=== PATIENT | male | born 1970 | race Caucasian/White ===

== ENCOUNTER 2016-07-05 00:16 | Emergency (ER) | payer MEDICAID, OTHER ==
[~2016-07-05] VITALS: Ht 170.2 cm; Wt 86.4 kg
[~2016-07-05 00:16] MED LIST: ADV250 IH; DULO60CA44 PO; GLYC2TAB13 PO; LISI-661 PO; METF500T4 PO; OLAN5TAB2 PO; PRAV40 PO; QUET400T PO; VALGDS450 PO
[2016-07-05] MEDS ORDERED: OMEP20 PO (00:39)
[2016-07-05] MEDS ORDERED: CLIN300C3 PO (00:39)
[2016-07-05] MEDS ORDERED: DONE10TA PO (00:39)
[2016-07-05] MEDS ORDERED: HYDR-3114 PO (00:39)
[2016-07-05] MEDS ORDERED: IPRNEB IH (00:39)
[2016-07-05] MEDS ORDERED: ALBU8HFA IH (00:39)
[2016-07-05] MEDS ORDERED: RAME8TAB17 PO (00:39)
[2016-07-05] MEDS ORDERED: EXEN5PEN2 INJ (00:39)
[2016-07-05] MEDS ORDERED: CHLO100T24 PO (00:39)
[2016-07-05] MEDS ORDERED: MOME13HF2 IH (00:39)
[2016-07-05] MEDS ORDERED: DIVA500T35 PO (00:39)
[2016-07-05] MEDS ORDERED: GABA-531 PO (00:39)
[2016-07-05] MEDS ORDERED: CLON1 PO (00:39)
[2016-07-05] MEDS ORDERED: METF500T4 PO (00:39)
[2016-07-05] MEDS ORDERED: ABAC1TAB15 PO (00:39)
[2016-07-05 01:02] LABS: BASOPHILS % (AUTO) 0.4 % (0.0-2.0); EOSINOPHILS % (AUTO) 2.2 % (1.0-6.0); HEMOGLOBIN 12.9 g/dL (13.5-17.5); LYMPHOCYTES # (AUTO) 2.4 K/uL (1.0-4.8); MEAN CORPUSCULAR HEMOGLOBIN 29.3 pg (26.0-34.0); MEAN CORPUSCULAR HGB CONC 32.2 G/dL (31.0-37.0); MEAN CORPUSCULAR VOLUME 91 fL (80-100); MONOCYTES # (AUTO) 0.8 K/uL (0.1-1.0); MONOCYTES % (AUTO) 6.2 % (2.0-9.0); NEUTROPHILS # (AUTO) 9.3 K/uL (1.8-7.7); NEUTROPHILS % (AUTO) 72.2 % (40.0-70.0); PLATELET COUNT (AUTO) 260 K/uL (150-450); RED BLOOD CELL COUNT(AUTO) 4.39 MIL/uL (4.50-5.90); RED CELL DISTRIBUTION WIDTH 13.9 % (11.5-14.5); WHITE BLOOD COUNT (AUTO) 12.8 K/uL (4.5-11.0)
[2016-07-05 01:10] LABS: ANION GAP 14 mmol/L (8-16); CALCIUM, TOTAL 9.6 mg/dL (8.8-10.5); CARBON DIOXIDE 25 mmol/L (22-29); CHLORIDE 102 mmol/L (98-107); CREATININE 2.01 mg/dL (0.60-1.30); GLOMERULAR FILTR. RATE CALC 36 mL/min (>60); POTASSIUM 4.1 mmol/L (3.5-5.1); SODIUM SERUM 141 mmol/L (136-145); UREA NITROGEN, BLOOD 34 mg/dL (7-18)
[2016-07-05 01:12] LABS: GLUCOSE,POINT OF CARE 177 MG/DL (70-110)
[2016-07-05] MEDS ORDERED: MORPHINE SULFATE 4 MG/ML SYRINGE IVP ONE (01:15)
[2016-07-05] MEDS ORDERED: SODIUM CHLORIDE 0.9% 1,000 ML IV ONE ×3 (01:15→01:45)
[2016-07-05 01:35] LABS: ALANINE AMINOTRANSFERASE 25 U/L (12-78); ALBUMIN 4.4 g/dL (3.4-5.0); ASPARTATE AMINOTRANSFERASE 14 U/L (15-37); BILIRUBIN,TOTAL 0.4 mg/dL (0.1-1.0); CREATINE KINASE MB 1.4 ng/mL (0-5); CREATINE KINASE, TOTAL 166 U/L (39-308); TOTAL PROTEIN, SERUM 7.6 g/dL (6.4-8.2)
[2016-07-05 01:47] LABS: LACTIC ACID 2.4 mmol/L (0.4-2.0)
[2016-07-05] MEDS ORDERED: DIAZEPAM 5 MG/ML 2 ML SYRINGE IVP ONE (02:15)
[2016-07-05 03:23] VITALS: BP 100/52
== END 2016-07-05 03:52 | disposition home or self-care (01) ==
LOC: EMS 00:17
DX: R25.2 Cramp and spasm (principal); N28.9 Disorder of kidney and ureter, unspecified; E11.9 Type 2 diabetes mellitus without complications; J44.9 Chronic obstructive pulmonary disease, unspecified; J45.909 Unspecified asthma, uncomplicated; Z88.0 Allergy status to penicillin; Z88.8 Allergy status to other drugs, medicaments and biological substances; Z87.891 Personal history of nicotine dependence
CPT/HCPCS: 36415; 71010; 80053; 82550; 82553; 82962; 83605; 83880; 85025; 93005; 93970; 96361; 96374; 96375; 99285; G0480; J1885; J2270; J7030

== ENCOUNTER 2016-08-13 23:06 | Emergency (ER) | payer OTHER ==
[~2016-08-13] VITALS: Ht 170.2 cm; Wt 90.0 kg
[~2016-08-13 23:06] MED LIST changes: +ABAC1TAB15 PO; -ADV250 IH; +ALBU8HFA IH; +CHLO100T24 PO; +CLIN300C3 PO; +CLON1 PO; +DIVA500T35 PO; +DONE10TA PO; -DULO60CA44 PO; +EXEN5PEN2 INJ; +GABA-531 PO; -GLYC2TAB13 PO; +HYDR-3114 PO; +IPRNEB IH; +MOME13HF2 IH; -OLAN5TAB2 PO; +OMEP20 PO; +RAME8TAB17 PO; -VALGDS450 PO
[2016-08-13 23:32] LABS: GLUCOSE,POINT OF CARE 186 MG/DL (70-110)
[2016-08-14 00:18] LABS: BASOPHILS % (AUTO) 0.3 % (0.0-2.0); EOSINOPHILS % (AUTO) 1.5 % (1.0-6.0); HEMATOCRIT 42.9 % (41-53); HEMOGLOBIN 14.2 g/dL (13.5-17.5); LYMPHOCYTES # (AUTO) 2.2 K/uL (1.0-4.8); LYMPHOCYTES % (AUTO) 17.3 % (22.0-44.0); MEAN CORPUSCULAR HEMOGLOBIN 30.3 pg (26.0-34.0); MEAN CORPUSCULAR HGB CONC 33.1 G/dL (31.0-37.0); MEAN CORPUSCULAR VOLUME 91 fL (80-100); MONOCYTES # (AUTO) 0.7 K/uL (0.1-1.0); MONOCYTES % (AUTO) 5.7 % (2.0-9.0); NEUTROPHILS # (AUTO) 9.4 K/uL (1.8-7.7); NEUTROPHILS % (AUTO) 75.2 % (40.0-70.0); PLATELET COUNT (AUTO) 241 K/uL (150-450); RED CELL DISTRIBUTION WIDTH 13.3 % (11.5-14.5); WHITE BLOOD COUNT (AUTO) 12.5 K/uL (4.5-11.0)
[2016-08-14 00:27] LABS: ANION GAP 18 mmol/L (8-16); CALCIUM, TOTAL 8.8 mg/dL (8.8-10.5); CARBON DIOXIDE 21 mmol/L (22-29); CHLORIDE 94 mmol/L (98-107); CREATININE 2.68 mg/dL (0.60-1.30); GLOMERULAR FILTR. RATE CALC 26 mL/min (>60); SODIUM SERUM 133 mmol/L (136-145); UREA NITROGEN, BLOOD 40 mg/dL (7-18)
[2016-08-14 00:30] LABS: INR 1.1 (0.9-1.1); PROTHROMBIN TIME 11.6 SEC (9.4-11.6)
[2016-08-14 00:44] LABS: B-TYPE NATRIURETIC PEPTIDE < 5 pg/mL (0-100)
[2016-08-14 00:52] LABS: ALANINE AMINOTRANSFERASE 22 U/L (12-78); ALBUMIN 4.8 g/dL (3.4-5.0); ASPARTATE AMINOTRANSFERASE 14 U/L (15-37); BILIRUBIN,TOTAL 0.7 mg/dL (0.1-1.0); CREATINE KINASE, TOTAL 209 U/L (39-308)
[2016-08-14] MEDS ORDERED: ONDANSETRON HCL 4 MG/2 ML VIAL IVP ONE ×2 (01:45→04:15)
[2016-08-14] MEDS ORDERED: SODIUM CHLORIDE 0.9% 1,000 ML IV ONE ×2 (01:45→03:15)
[2016-08-14] MEDS ORDERED: MORPHINE SULFATE 4 MG/ML SYRINGE IVP ONE ×2 (01:45→04:15)
[2016-08-14 04:31] LABS: APPEARANCE,URINE CLOUDY (CLEAR); GLUCOSE, URINE (UA) NEGATIVE (NEGATIVE); KETONES,URINE NEGATIVE (NEGATIVE); LEUKOCYTE ESTERASE ,URINE NEGATIVE (NEGATIVE); OCCULT BLOOD,URINE NEGATIVE (NEGATIVE); PROTEIN,URINE TRACE (NEGATIVE)
[2016-08-14 04:42] LABS: ADD UA MICROSCOPIC YES
[2016-08-14 04:46] LABS: SQUAMOUS EPITHELIAL CELL,UR Few /LPF (None Seen)
[2016-08-14 04:47] LABS: RBC,URINE 0-2 /HPF (0-2); WBC,URINE 0-2 /HPF (0-5)
[2016-08-14 04:48] LABS: AMORPHOUS SEDIMENT,UR Few /LPF (None Seen); COARSE GRANULAR CASTS,URINE 0-2 /LPF (None Seen); FINE GRANULAR CASTS,URINE 0-2 /LPF (None Seen); HYALINE CASTS, URINE 0-2 /LPF (None Seen)
[2016-08-14 05:07] VITALS: BP 113/84
== END 2016-08-14 05:17 | disposition home or self-care (01) ==
LOC: EMS 23:08
DX: F41.9 Anxiety disorder, unspecified (principal); E11.22 Type 2 diabetes mellitus with diabetic chronic kidney disease; N18.9 Chronic kidney disease, unspecified; E86.0 Dehydration; F20.9 Schizophrenia, unspecified; J44.9 Chronic obstructive pulmonary disease, unspecified; J45.909 Unspecified asthma, uncomplicated; Z87.891 Personal history of nicotine dependence; Z88.0 Allergy status to penicillin; Z88.8 Allergy status to other drugs, medicaments and biological substances; Z86.718 Personal history of other venous thrombosis and embolism
CPT/HCPCS: 36415; 71010; 80053; 80307; 81001; 82550; 82553; 82962; 83880; 84484; 85025; 85610; 85730; 96361; 96374; 96375; 96376; 99285; J2270; J2405; J7030

== ENCOUNTER 2016-08-22 22:40 | Emergency (ER) | payer OTHER ==
[~2016-08-22] VITALS: Ht 170.2 cm; Wt 83.2 kg
[2016-08-22 23:40] LABS: BASOPHILS % (AUTO) 0.3 % (0.0-2.0); EOSINOPHILS % (AUTO) 2.5 % (1.0-6.0); HEMOGLOBIN 13.2 g/dL (13.5-17.5); LYMPHOCYTES # (AUTO) 2.1 K/uL (1.0-4.8); LYMPHOCYTES % (AUTO) 21.6 % (22.0-44.0); MEAN CORPUSCULAR VOLUME 91 fL (80-100); MONOCYTES # (AUTO) 0.5 K/uL (0.1-1.0); NEUTROPHILS % (AUTO) 70.6 % (40.0-70.0); PLATELET COUNT (AUTO) 244 K/uL (150-450); RED BLOOD CELL COUNT(AUTO) 4.27 MIL/uL (4.50-5.90); RED CELL DISTRIBUTION WIDTH 13.3 % (11.5-14.5); WHITE BLOOD COUNT (AUTO) 9.9 K/uL (4.5-11.0)
[2016-08-22 23:48] LABS: CALCIUM, TOTAL 9.2 mg/dL (8.8-10.5); CREATININE 1.74 mg/dL (0.60-1.30); POTASSIUM 3.8 mmol/L (3.5-5.1)
[2016-08-22 23:49] LABS: TROPONIN I < 0.02 ng/mL (0.00-0.05)
[2016-08-22 23:54] LABS: ALBUMIN 4.1 g/dL (3.4-5.0); BILIRUBIN,TOTAL 0.2 mg/dL (0.1-1.0); TOTAL PROTEIN, SERUM 7.4 g/dL (6.4-8.2)
[2016-08-22 23:57] LABS: AMMONIA 31 umol/L (11-32)
[2016-08-23 00:45] VITALS: BP 98/52
[2016-08-23 01:16] LABS: APPEARANCE,URINE CLEAR (CLEAR); GLUCOSE, URINE (UA) NEGATIVE (NEGATIVE); KETONES,URINE NEGATIVE (NEGATIVE); LEUKOCYTE ESTERASE ,URINE NEGATIVE (NEGATIVE); OCCULT BLOOD,URINE NEGATIVE (NEGATIVE); PH,URINE 5.5 (5.0-8.0); PROTEIN,URINE POS 1+ (NEGATIVE)
[2016-08-23 01:25] LABS: ADD UA MICROSCOPIC NO
== END 2016-08-23 01:43 | disposition home or self-care (01) ==
LOC: EMS 22:41
DX: R55 Syncope and collapse (principal); M79.661 Pain in right lower leg; M79.662 Pain in left lower leg; E11.29 Type 2 diabetes mellitus with other diabetic kidney complication; N28.9 Disorder of kidney and ureter, unspecified; G89.29 Other chronic pain; J45.909 Unspecified asthma, uncomplicated; J44.9 Chronic obstructive pulmonary disease, unspecified; Z87.891 Personal history of nicotine dependence; Z88.0 Allergy status to penicillin; Z88.8 Allergy status to other drugs, medicaments and biological substances
CPT/HCPCS: 93005; 99285

== ENCOUNTER 2016-09-13 17:02 | Emergency (ER) | payer OTHER ==
[~2016-09-13] VITALS: Ht 170.2 cm; Wt 90.0 kg
[2016-09-13 17:17] LABS: GLUCOSE,POINT OF CARE 101 MG/DL (70-110)
[2016-09-13] MEDS ORDERED: SODIUM CHLORIDE 0.9% 1,000 ML IV ONE (18:15)
[2016-09-13] MEDS ORDERED: ONDANSETRON HCL 4 MG/2 ML VIAL IVP ONE (18:15)
[2016-09-13] MEDS ORDERED: HYDROmorphone 2 MG/ML SYRINGE IVP ONE (18:15)
[2016-09-13 18:30] LABS: BASOPHILS # (AUTO) 0.08 K/uL (0.00-0.20); BASOPHILS % (AUTO) 0.8 % (0.0-2.0); EOSINOPHILS # (AUTO) 0.45 K/uL (0.00-0.70); EOSINOPHILS % (AUTO) 4.43 % (1.0-6.0); HEMOGLOBIN 12.4 g/dL (13.5-17.5); LYMPHOCYTES # (AUTO) 2.5 K/uL (1.0-4.8); MEAN CORPUSCULAR HEMOGLOBIN 31.4 pg (26.0-34.0); MEAN CORPUSCULAR HGB CONC 33.4 G/dL (31.0-37.0); MEAN CORPUSCULAR VOLUME 94 fL (80-100); MONOCYTES # (AUTO) 0.8 K/uL (0.1-1.0); MONOCYTES % (AUTO) 7.5 % (2.0-9.0); NEUTROPHILS # (AUTO) 6.3 K/uL (1.8-7.7); NEUTROPHILS % (AUTO) 62.2 % (40.0-70.0); PLATELET COUNT (AUTO) 200 K/uL (150-450); RED BLOOD CELL COUNT(AUTO) 3.94 MIL/uL (4.50-5.90); WHITE BLOOD COUNT (AUTO) 10.1 K/uL (4.5-11.0)
[2016-09-13 18:45] LABS: ANION GAP 10 mmol/L (8-16); CALCIUM, TOTAL 9.1 mg/dL (8.8-10.5); CARBON DIOXIDE 27 mmol/L (22-29); CHLORIDE 105 mmol/L (98-107); CREATININE 1.05 mg/dL (0.60-1.30); GLOMERULAR FILTR. RATE CALC > 60 mL/min (>60); POTASSIUM 4.2 mmol/L (3.5-5.1); SODIUM SERUM 142 mmol/L (136-145); UREA NITROGEN, BLOOD 17 mg/dL (7-18)
[2016-09-13 18:47] LABS: ALANINE AMINOTRANSFERASE 15 U/L (12-78); ALBUMIN 3.9 g/dL (3.4-5.0); ASPARTATE AMINOTRANSFERASE 10 U/L (15-37); BILIRUBIN,TOTAL 0.2 mg/dL (0.1-1.0); TOTAL PROTEIN, SERUM 7.3 g/dL (6.4-8.2)
[2016-09-13 18:48] LABS: PROTHROMBIN TIME 10.6 SEC (9.4-11.6)
[2016-09-13 19:11] VITALS: BP 102/76
== END 2016-09-13 20:30 | disposition home or self-care (01) ==
LOC: EMS 17:03
DX: M25.462 Effusion, left knee (principal); M17.12 Unilateral primary osteoarthritis, left knee; E11.9 Type 2 diabetes mellitus without complications; M71.22 Synovial cyst of popliteal space [Baker], left knee; F20.9 Schizophrenia, unspecified; J45.909 Unspecified asthma, uncomplicated; J44.9 Chronic obstructive pulmonary disease, unspecified; F17.210 Nicotine dependence, cigarettes, uncomplicated; N28.9 Disorder of kidney and ureter, unspecified; Z88.8 Allergy status to other drugs, medicaments and biological substances; Z88.0 Allergy status to penicillin; Z96.652 Presence of left artificial knee joint
CPT/HCPCS: 29530; 36415; 80053; 82962; 85025; 85610; 93971; 96361; 96374; 96375; 99285; 99406; J1170; J2405; J7030

== ENCOUNTER 2016-09-21 19:00 | Emergency (ER) | payer OTHER ==
[~2016-09-21] VITALS: Ht 168.9 cm; Wt 89.5 kg
[2016-09-21 19:17] LABS: GLUCOSE,POINT OF CARE 142 MG/DL (70-110)
[2016-09-21] MEDS ORDERED: BUPIVACAINE HCL/PF 0.25% 10 ML VIAL INJ ONE (20:15)
[2016-09-21] MEDS ORDERED: BACITRACIN 0.9 GM PACKET OINTMENT TP ONE (20:15)
[2016-09-21 20:22] VITALS: BP 121/85
== END 2016-09-21 20:33 | disposition home or self-care (01) ==
LOC: EMS 19:02
DX: S61.512A Laceration without foreign body of left wrist, initial encounter (principal); J45.909 Unspecified asthma, uncomplicated; J44.9 Chronic obstructive pulmonary disease, unspecified; E11.29 Type 2 diabetes mellitus with other diabetic kidney complication; N28.9 Disorder of kidney and ureter, unspecified; Z87.891 Personal history of nicotine dependence; Z88.0 Allergy status to penicillin; Z88.8 Allergy status to other drugs, medicaments and biological substances; W45.8XXA Other foreign body or object entering through skin, initial encounter; Y93.89 Activity, other specified; Y92.89 Other specified places as the place of occurrence of the external cause; Y99.8 Other external cause status
CPT/HCPCS: 12001; 82962; 99283; J3490

== ENCOUNTER 2016-12-06 17:58 | Emergency (ER) | payer OTHER ==
[~2016-12-06] VITALS: Ht 170.2 cm; Wt 84.5 kg
[~2016-12-06 17:58] MED LIST changes: -CLIN300C3 PO; -DONE10TA PO; +DONE10TA8 PO; -PRAV40 PO; +PRAV40TA4 PO; -RAME8TAB17 PO; +RAME8TAB8 PO
[2016-12-06] MEDS ORDERED: IPRATROPIUM BROMIDE 0.5 MG/2.5 ML NEB SOLUTION NEB ONE (19:30)
[2016-12-06] MEDS ORDERED: GABAPENTIN 300 MG CAPSULE PO ONE (19:30)
[2016-12-06] MEDS ORDERED: OxyCODONE HCL/ACETAMINOPHEN 10-325 MG TABLET PO ONE (19:30)
[2016-12-06] MEDS ORDERED: ALBUTEROL SULFATE 5 MG/ML 20 ML NEB SOLN [BULK] NEB ONE (19:30)
[2016-12-06] MEDS ORDERED: PredniSONE 20 MG TABLET PO ONE (19:30)
[2016-12-06] MEDS ORDERED: 0.9% SODIUM CHLORIDE 5 ML NEB SOLUTION NEB ONE (19:31)
[2016-12-06 19:44] LABS: BASOPHILS % (AUTO) 0.3 % (0.0-2.0); EOSINOPHILS % (AUTO) 2.8 % (1.0-6.0); HEMATOCRIT 38.8 % (41-53); LYMPHOCYTES # (AUTO) 2.5 K/uL (1.0-4.8); LYMPHOCYTES % (AUTO) 17.1 % (22.0-44.0); MEAN CORPUSCULAR HEMOGLOBIN 31.6 pg (26.0-34.0); MEAN CORPUSCULAR HGB CONC 33.4 G/dL (31.0-37.0); MEAN CORPUSCULAR VOLUME 95 fL (80-100); MONOCYTES # (AUTO) 0.9 K/uL (0.1-1.0); MONOCYTES % (AUTO) 5.9 % (2.0-9.0); NEUTROPHILS % (AUTO) 73.9 % (40.0-70.0); PLATELET COUNT (AUTO) 262 K/uL (150-450); RED BLOOD CELL COUNT(AUTO) 4.11 MIL/uL (4.50-5.90); RED CELL DISTRIBUTION WIDTH 13.8 % (11.5-14.5); WHITE BLOOD COUNT (AUTO) 14.9 K/uL (4.5-11.0)
[2016-12-06 19:58] LABS: ANION GAP 8 mmol/L (8-16); CALCIUM, TOTAL 9.1 mg/dL (8.8-10.5); CARBON DIOXIDE 29 mmol/L (22-29); CHLORIDE 102 mmol/L (98-107); CREATININE 0.89 mg/dL (0.60-1.30); GLOMERULAR FILTR. RATE CALC > 60 mL/min (>60); POTASSIUM 4.5 mmol/L (3.5-5.1); SODIUM SERUM 139 mmol/L (136-145); UREA NITROGEN, BLOOD 12 mg/dL (7-18)
[2016-12-06 20:04] LABS: ALANINE AMINOTRANSFERASE 16 U/L (12-78); ALBUMIN 4.1 g/dL (3.4-5.0); ASPARTATE AMINOTRANSFERASE 11 U/L (15-37); BILIRUBIN,TOTAL 0.2 mg/dL (0.1-1.0); TOTAL PROTEIN, SERUM 7.8 g/dL (6.4-8.2)
[2016-12-06 20:15] LABS: GLUCOSE,POINT OF CARE 144 MG/DL (70-110)
[2016-12-06 20:25] VITALS: BP 141/81
== END 2016-12-06 20:41 | disposition home or self-care (01) ==
LOC: EMS 18:03
DX: J44.1 Chronic obstructive pulmonary disease with (acute) exacerbation (principal); R07.89 Other chest pain; E11.9 Type 2 diabetes mellitus without complications; Z86.718 Personal history of other venous thrombosis and embolism; Z21 Asymptomatic human immunodeficiency virus [HIV] infection status; Z87.891 Personal history of nicotine dependence; Z88.0 Allergy status to penicillin; Z88.8 Allergy status to other drugs, medicaments and biological substances
CPT/HCPCS: 36415; 71010; 80053; 82962; 85025; 93005; 94640; 99285; J7512; J7611

== ENCOUNTER 2017-01-10 22:11 | Emergency (ER) | payer OTHER ==
[~2017-01-10] VITALS: Ht 170.2 cm; Wt 90.5 kg
[2017-01-10 22:28] LABS: GLUCOSE,POINT OF CARE 165 MG/DL (70-110)
[2017-01-10 22:36] LABS: BASOPHILS # (AUTO) 0.04 K/uL (0.00-0.20); BASOPHILS % (AUTO) 0.3 % (0.0-2.0); EOSINOPHILS # (AUTO) 0.35 K/uL (0.00-0.70); HEMOGLOBIN 12.2 g/dL (13.5-17.5); LYMPHOCYTES # (AUTO) 2.6 K/uL (1.0-4.8); LYMPHOCYTES % (AUTO) 21.7 % (22.0-44.0); MEAN CORPUSCULAR HEMOGLOBIN 31.5 pg (26.0-34.0); MEAN CORPUSCULAR HGB CONC 32.9 G/dL (31.0-37.0); MEAN CORPUSCULAR VOLUME 96 fL (80-100); MONOCYTES # (AUTO) 0.8 K/uL (0.1-1.0); MONOCYTES % (AUTO) 6.4 % (2.0-9.0); NEUTROPHILS # (AUTO) 8.3 K/uL (1.8-7.7); NEUTROPHILS % (AUTO) 68.7 % (40.0-70.0); PLATELET COUNT (AUTO) 192 K/uL (150-450); RED BLOOD CELL COUNT(AUTO) 3.87 MIL/uL (4.50-5.90); RED CELL DISTRIBUTION WIDTH 14.5 % (11.5-14.5); WHITE BLOOD COUNT (AUTO) 12.1 K/uL (4.5-11.0)
[2017-01-10 22:43] LABS: ANION GAP 6 mmol/L (8-16); CALCIUM, TOTAL 9.7 mg/dL (8.8-10.5); CARBON DIOXIDE 28 mmol/L (22-29); CHLORIDE 100 mmol/L (98-107); GLOMERULAR FILTR. RATE CALC 60 mL/min (>60); POTASSIUM 4.6 mmol/L (3.5-5.1); SODIUM SERUM 134 mmol/L (136-145); UREA NITROGEN, BLOOD 15 mg/dL (7-18)
[2017-01-10] MEDS ORDERED: SODIUM CHLORIDE 0.9% 1,000 ML IV ONE (22:45)
[2017-01-10 22:49] LABS: ACETAMINOPHEN 2 mcg/mL (10-30); ALANINE AMINOTRANSFERASE 14 U/L (12-78); ALBUMIN 3.6 g/dL (3.4-5.0); ASPARTATE AMINOTRANSFERASE 7 U/L (15-37); BILIRUBIN,TOTAL 0.2 mg/dL (0.1-1.0); TOTAL PROTEIN, SERUM 6.9 g/dL (6.4-8.2); VALPROIC ACID 71 mcg/mL (50-100)
[2017-01-10 23:01] LABS: SALICYLATE 4.4 mg/dL (2.8-20.0)
[2017-01-10 23:12] LABS: CREATINE KINASE MB 0.9 ng/mL (0-5); CREATINE KINASE, TOTAL 71 U/L (39-308)
[2017-01-11] MEDS ORDERED: SODIUM CHLORIDE 0.9% 1,000 ML IV ONE (01:15)
[2017-01-11] MEDS ORDERED: SODIUM CHLORIDE 0.9% 500 ML IV ONE (03:30)
[2017-01-11 05:08] VITALS: BP 121/73
== END 2017-01-11 05:15 | disposition home or self-care (01) ==
LOC: EMS 22:12
DX: T43.591A Poisoning by other antipsychotics and neuroleptics, accidental (unintentional), initial encounter (principal); J98.4 Other disorders of lung; J45.909 Unspecified asthma, uncomplicated; J44.9 Chronic obstructive pulmonary disease, unspecified; Z87.891 Personal history of nicotine dependence; Z88.8 Allergy status to other drugs, medicaments and biological substances; Z88.0 Allergy status to penicillin
CPT/HCPCS: 36415; 71010; 71250; 80053; 80164; 80307; 82550; 82553; 82962; 83880; 84484; 85025; 93005; 96360; 96361; 99291; G0480 ×2; G0481; J7030 ×2; J7040; 99285

== ENCOUNTER 2017-11-17 12:28 | Emergency (ER) | payer OTHER ==
[~2017-11-17 12:28] MED LIST changes: +DIVA-78 PO; -DIVA500T35 PO; +METF-960 PO; -METF500T4 PO
== END 2017-11-17 12:58 | disposition left against medical advice (07) ==
LOC: EMS 12:29
DX: M79.643 Pain in unspecified hand (principal); Z53.21 Procedure and treatment not carried out due to patient leaving prior to being seen by health care provider

== ENCOUNTER 2018-02-05 20:39 | Emergency (ER) | payer OTHER ==
[~2018-02-05] VITALS: Ht 172.7 cm; Wt 93.0 kg
[2018-02-05] MEDS ORDERED: ASPI81TA39 PO (20:51)
[2018-02-05] MEDS ORDERED: PRED-572 PO (20:59)
[2018-02-05] MEDS ORDERED: ACET325C PO (20:59)
[2018-02-05] MEDS ORDERED: MOME13HF2 IH (20:59)
[2018-02-05] MEDS ORDERED: LURA80 PO (20:59)
[2018-02-05] MEDS ORDERED: DOCU250C91 GT (20:59)
[2018-02-05] MEDS ORDERED: NICO1PAT50 TD (20:59)
[2018-02-05] MEDS ORDERED: OXYC10TA93 PO (20:59)
[2018-02-05] MEDS ORDERED: CELE-84 PO (20:59)
[2018-02-05] MEDS ORDERED: FLUT15CR TP (20:59)
[2018-02-05] MEDS ORDERED: ALBU8HFA IH (20:59)
[2018-02-05] MEDS ORDERED: CETI-340 PO (20:59)
[2018-02-05 21:04] LABS: BASOPHILS % (AUTO) 0.4 % (0.0-2.0); EOSINOPHILS % (AUTO) 2.6 % (1.0-6.0); HEMATOCRIT 32.8 % (41-53); HEMOGLOBIN 11.2 g/dL (13.5-17.5); LYMPHOCYTES # (AUTO) 2.6 K/uL (1.0-4.8); MEAN CORPUSCULAR HEMOGLOBIN 32.6 pg (26.0-34.0); MEAN CORPUSCULAR HGB CONC 34.1 G/dL (31.0-37.0); MEAN CORPUSCULAR VOLUME 95 fL (80-100); MONOCYTES # (AUTO) 1.2 K/uL (0.1-1.0); MONOCYTES % (AUTO) 8.5 % (2.0-9.0); NEUTROPHILS % (AUTO) 70.5 % (40.0-70.0); PLATELET COUNT (AUTO) 340 K/uL (150-450); RED BLOOD CELL COUNT(AUTO) 3.44 MIL/uL (4.50-5.90); RED CELL DISTRIBUTION WIDTH 12.8 % (11.5-14.5)
[2018-02-05 21:13] LABS: ANION GAP 9 mmol/L (8-16); CALCIUM, TOTAL 8.8 mg/dL (8.8-10.5); CARBON DIOXIDE 28 mmol/L (22-29); CHLORIDE 95 mmol/L (98-107); CREATININE 1.14 mg/dL (0.60-1.30); GLOMERULAR FILTR. RATE CALC > 60 mL/min (>60); GLUCOSE,RANDOM 201 mg/dL (70-110); POTASSIUM 3.8 mmol/L (3.5-5.1); SODIUM SERUM 132 mmol/L (136-145); UREA NITROGEN, BLOOD 13 mg/dL (7-18)
[2018-02-05 21:19] LABS: ALANINE AMINOTRANSFERASE 14 U/L (12-78); ALBUMIN 3.2 g/dL (3.4-5.0); ALKALINE PHOSPHATASE 104 U/L (46-116); ASPARTATE AMINOTRANSFERASE 11 U/L (15-37); BILIRUBIN,TOTAL 0.5 mg/dL (0.1-1.0); TOTAL PROTEIN, SERUM 6.6 g/dL (6.4-8.2)
[2018-02-05 21:45] VITALS: BP 103/73
== END 2018-02-05 21:46 | disposition left against medical advice (07) ==
LOC: EMS 20:40
DX: R53.1 Weakness (principal); R42 Dizziness and giddiness; M79.89 Other specified soft tissue disorders; E11.9 Type 2 diabetes mellitus without complications; I10 Essential (primary) hypertension; F17.210 Nicotine dependence, cigarettes, uncomplicated; Z96.651 Presence of right artificial knee joint; Z88.8 Allergy status to other drugs, medicaments and biological substances; Z88.0 Allergy status to penicillin; Z79.82 Long term (current) use of aspirin; Z79.84 Long term (current) use of oral hypoglycemic drugs; Z79.899 Other long term (current) drug therapy
CPT/HCPCS: 85379; 93005

== ENCOUNTER 2021-01-27 10:34 | Emergency (ER) | payer OTHER ==
[~2021-01-27] VITALS: Ht 170.2 cm; Wt 95.9 kg
[~2021-01-27 10:34] MED LIST changes: +ACET325C PO; +ASPI81TA39 PO; +CELE-84 PO; +CETI-340 PO; -CHLO100T24 PO; +CHLO100T31 PO; +CLON-595 PO; -CLON1 PO; +DIVA-112 PO; -DIVA-78 PO; +DOCU250C91 GT; +FLUT15CR TP; +GABA-1181 PO; -GABA-531 PO; -HYDR-3114 PO; +HYDR50TA46 PO; -LISI-661 PO; +LISI-893 PO; +LURA80TA2 PO; +METF-1211 PO; -METF-960 PO; +NICO1PAT50 TD; +OXYC10TA48 PO; +PRED-572 PO
[2021-01-27 10:43] VITALS: BP 119/70
[2021-01-27] MEDS ORDERED: RABIES VACCINE (PCEC)/PF 2.5 UNITS/ML SYRINGE IM. ONE (11:15)
== END 2021-01-27 12:17 | disposition home or self-care (01) ==
LOC: EMS 10:34
DX: Z23 Encounter for immunization (principal); I10 Essential (primary) hypertension; E11.9 Type 2 diabetes mellitus without complications; F17.210 Nicotine dependence, cigarettes, uncomplicated; Z88.0 Allergy status to penicillin; Z88.8 Allergy status to other drugs, medicaments and biological substances; Z79.899 Other long term (current) drug therapy
CPT/HCPCS: 90471; 90675; 99281

== ENCOUNTER 2022-01-07 14:51 | Emergency (ER) | payer OTHER ==
[~2022-01-07] VITALS: Ht 172.7 cm; Wt 93.2 kg
[~2022-01-07 14:51] MED LIST changes: -CHLO100T31 PO; +CHLO100T42 PO; +DONE-51 PO; -DONE10TA8 PO
[2022-01-07 16:35] LABS: COVID AG,FIA SOURCE NASAL SWAB
[2022-01-07 16:54] LABS: INFLUENZA TYPE A NEGATIVE FOR TYPE A (NEGATIVE); INFLUENZA TYPE B NEGATIVE FOR TYPE B (NEGATIVE)
[2022-01-07] MEDS ORDERED: ALBUTEROL SULFATE 2.5 MG/0.5 ML NEB SOLUTION NEB ONE ×2 (17:15→19:15)
[2022-01-07] MEDS ORDERED: IPRATROPIUM BROMIDE 0.5 MG/2.5 ML NEB SOLUTION NEB ONE (17:15)
[2022-01-07] MEDS ORDERED: PredniSONE 20 MG TABLET PO ONE (17:15)
[2022-01-07] MEDS ORDERED: 0.9% SODIUM CHLORIDE 5 ML NEB SOLUTION NEB ONE (17:16)
[2022-01-07 19:28] LABS: BASOPHILS % (AUTO) 0.7 % (0.0-2.0); EOSINOPHILS % (AUTO) 2.2 % (1.0-6.0); HEMATOCRIT 41.2 % (41-53); LYMPHOCYTES # (AUTO) 1.3 K/uL (1.0-4.8); LYMPHOCYTES % (AUTO) 12.4 % (22.0-44.0); MEAN CORPUSCULAR HEMOGLOBIN 31.2 pg (26.0-34.0); MEAN CORPUSCULAR VOLUME 92 fL (80-100); MONOCYTES # (AUTO) 0.7 K/uL (0.1-1.0); MONOCYTES % (AUTO) 6.7 % (2.0-9.0); NEUTROPHILS # (AUTO) 8.1 K/uL (1.8-7.7); PLATELET COUNT (AUTO) 224 K/uL (150-450); RED BLOOD CELL COUNT(AUTO) 4.48 MIL/uL (4.50-5.90); RED CELL DISTRIBUTION WIDTH 12.9 % (11.5-14.5)
[2022-01-07 19:42] LABS: ANION GAP 9 mmol/L (8-16); CARBON DIOXIDE 30 mmol/L (22-29); CHLORIDE 99 mmol/L (98-107); CREATININE 0.98 mg/dL (0.60-1.30); GLUCOSE,RANDOM 264 mg/dL (70-110); POTASSIUM 4.4 mmol/L (3.5-5.1); SODIUM SERUM 138 mmol/L (136-145); UREA NITROGEN, BLOOD 10 mg/dL (7-18)
[2022-01-07 19:50] LABS: ALANINE AMINOTRANSFERASE 17 U/L (12-78); ALBUMIN 3.9 g/dL (3.4-5.0); ALKALINE PHOSPHATASE 104 U/L (46-116); ASPARTATE AMINOTRANSFERASE 7 U/L (15-37); BILIRUBIN,TOTAL 0.2 mg/dL (0.1-1.0); TOTAL PROTEIN, SERUM 7.8 g/dL (6.4-8.2)
[2022-01-07 19:54] LABS: GLOMERULAR FILTR. RATE CALC > 60 mL/min (>60)
[2022-01-07] MEDS ORDERED: HYDROCODONE/ACETAMINOPHEN 5-325 MG TABLET PO ONE (20:30)
[2022-01-07 21:09] VITALS: BP 138/102
[2022-01-07] MEDS ORDERED: PRED-554 PO (21:13)
[2022-01-07] MEDS ORDERED: ALBU90AE IH (21:13)
[2022-01-07] MEDS ORDERED: AZIT250T9 PO (21:14)
== END 2022-01-07 21:30 | disposition home or self-care (01) ==
LOC: EMS 14:58
DX: J44.9 Chronic obstructive pulmonary disease, unspecified (principal); Z20.822 Contact with and (suspected) exposure to COVID-19; E11.9 Type 2 diabetes mellitus without complications; F20.9 Schizophrenia, unspecified; F17.210 Nicotine dependence, cigarettes, uncomplicated; R05.9 Cough, unspecified; R09.81 Nasal congestion
CPT/HCPCS: 99285; 71045; 87426; 80053; 82962; 84484; 85025; 87804; 36415; 94640; 93005; J7512; J7613

== ENCOUNTER 2023-10-18 11:54 | Emergency (ER) | payer OTHER ==
[~2023-10-18] VITALS: Ht 167.6 cm; Wt 81.8 kg
[~2023-10-18 11:54] MED LIST changes: +ALBU18HF12 IH; +ALBU2SYR3 PO; +ALBU90AE IH; +CELE-125 PO; -CELE-84 PO; -CETI-340 PO; +CETI-341 PO; +INSLAN SQ; +IPRA0.2S49 IH; +IPRA4AER IH; -IPRNEB IH; +MOME13HF12 IH; -MOME13HF2 IH; +MONT-35 PO; +NICO1PAT49 TD; +PRED-554 PO; +PRED-729 PO
[2023-10-18 12:15] VITALS: BP 130/77; PULSE 78; RESP 16; TEMP 98.4
[2023-10-18] MEDS ORDERED: DIPH-1237 PO (12:22)
[2023-10-18] MEDS ORDERED: LORA-1000 PO (12:23)
[2023-10-18] MEDS ORDERED: BUPR-49 PO (12:23)
[2023-10-18] MEDS ORDERED: PALI1.5T7 PO (12:23)
[2023-10-18] MEDS ORDERED: QUET400T13 PO (12:23)
[2023-10-18] MEDS ORDERED: MULT-1366 PO (12:23)
[2023-10-18] MEDS ORDERED: METF-81 PO (12:23)
[2023-10-18] MEDS ORDERED: METO25 PO (12:23)
[2023-10-18] MEDS ORDERED: ASPI-1444 PO (12:23)
[2023-10-18] MEDS ORDERED: RAME8TAB24 PO (12:23)
[2023-10-18] MEDS ORDERED: OMEP20CA12 PO (12:23)
[2023-10-18] MEDS ORDERED: LISI10TA24 PO (12:23)
[2023-10-18] MEDS ORDERED: GABA600T10 PO (12:23)
[2023-10-18] MEDS ORDERED: OXYC-618 PO (12:23)
[2023-10-18 12:31] LABS: GLUCOMETER DEV NAME(LOC) ER.7; GLUCOSE,POINT OF CARE 347 MG/DL (70-110)
[2023-10-18 13:14] LABS: BASOPHILS % (AUTO) 0.7 % (0.0-2.0); EOSINOPHILS % (AUTO) 2.5 % (1.0-6.0); HEMATOCRIT 41.9 % (41-53); HEMOGLOBIN 14.4 g/dL (13.5-17.5); LYMPHOCYTES # (AUTO) 2.6 K/uL (1.0-4.8); MEAN CORPUSCULAR HEMOGLOBIN 30.5 pg (26.0-34.0); MEAN CORPUSCULAR HGB CONC 34.3 G/dL (31.0-37.0); MEAN CORPUSCULAR VOLUME 89 fL (80-100); MONOCYTES # (AUTO) 0.5 K/uL (0.1-1.0); MONOCYTES % (AUTO) 7.4 % (2.0-9.0); NEUTROPHILS % (AUTO) 54.4 % (40.0-70.0); PLATELET COUNT (AUTO) 192 K/uL (150-450); RED BLOOD CELL COUNT(AUTO) 4.72 MIL/uL (4.50-5.90); RED CELL DISTRIBUTION WIDTH 13.3 % (11.5-14.5); WHITE BLOOD COUNT (AUTO) 7.3 K/uL (4.5-11.0)
[2023-10-18 13:26] LABS: ANION GAP 13 mmol/L (8-16); CALCIUM, TOTAL 8.9 mg/dL (8.8-10.5); CARBON DIOXIDE 26 mmol/L (22-29); CHLORIDE 97 mmol/L (98-107); CREATININE 1.06 mg/dL (0.60-1.30); GLOMERULAR FILTR. RATE CALC > 60 mL/min (>60); GLUCOSE,RANDOM 309 mg/dL (70-110); POTASSIUM 4.2 mmol/L (3.5-5.1); SODIUM SERUM 136 mmol/L (136-145); UREA NITROGEN, BLOOD 12 mg/dL (7-18)
[2023-10-18] MEDS ORDERED: DOXY100C5 PO (15:08)
[2023-10-18] MEDS: DOXYCYCLINE HYCLATE 100 MG TABLET PO ONE (15:19)
== END 2023-10-18 15:24 | disposition home or self-care (01) ==
LOC: EMS 11:54
DX: L03.213 Periorbital cellulitis (principal); F41.9 Anxiety disorder, unspecified; J44.9 Chronic obstructive pulmonary disease, unspecified; E11.9 Type 2 diabetes mellitus without complications; E78.00 Pure hypercholesterolemia, unspecified; I10 Essential (primary) hypertension; F20.9 Schizophrenia, unspecified; F17.210 Nicotine dependence, cigarettes, uncomplicated; Z96.659 Presence of unspecified artificial knee joint; Z98.890 Other specified postprocedural states; Z88.0 Allergy status to penicillin; Z88.8 Allergy status to other drugs, medicaments and biological substances
CPT/HCPCS: 80048; 82962; 85025; 99283; 99407

== ENCOUNTER 2024-11-02 22:07 | Inpatient (IN) | payer OTHER ==
[~2024-11-02] VITALS: Ht 170.2 cm; Wt 78.0 kg
[~2024-11-02 22:07] MED LIST changes: -ALBU18HF12 IH; -ALBU2SYR3 PO; -ALBU8HFA IH; +ASPI-1444 PO; -ASPI81TA39 PO; +BUPR-49 PO; -CELE-125 PO; -CETI-341 PO; -CHLO100T42 PO; -CLON-595 PO; -DONE-51 PO; -FLUT15CR TP; -GABA-1181 PO; +GABA-1404 PO; -HYDR50TA46 PO; -IPRA4AER IH; -LISI-893 PO; +LISI10TA24 PO; -LURA80TA2 PO; -METF-1211 PO; -MOME13HF12 IH; -MONT-35 PO; +MULT-1366 PO; -NICO1PAT49 TD; -NICO1PAT50 TD; -OMEP20 PO; +OMEP20CA12 PO; -OXYC10TA48 PO; +PRAV-59 PO; -PRAV40TA4 PO; -PRED-554 PO; -PRED-572 PO; -PRED-729 PO; -QUET400T PO; -RAME8TAB8 PO
[2024-11-02] MEDS: SODIUM CHLORIDE 0.9% 1,000 ML IV ONE (22:41)
[2024-11-02 22:42] LABS: PLATELET COUNT (AUTO) 252 K/uL (150-450); RED BLOOD CELL COUNT(AUTO) 5.06 MIL/uL (4.50-5.90); RED CELL DISTRIBUTION WIDTH 13.3 % (11.5-14.5); WHITE BLOOD COUNT (AUTO) 7.3 K/uL (4.5-11.0)
[2024-11-02 22:51] LABS: CALCIUM, TOTAL 8.8 mg/dL (8.8-10.5); CREATININE 0.95 mg/dL (0.60-1.30); GLOMERULAR FILTR. RATE CALC > 60 mL/min (>60); GLUCOSE,RANDOM 351 mg/dL (70-110); SODIUM SERUM 135 mmol/L (136-145); UREA NITROGEN, BLOOD 9 mg/dL (7-18)
[2024-11-02 22:53] LABS: ALCOHOL, BLOOD (SERUM) < 3 mg/dL (0-10)
[2024-11-02 22:57] LABS: ASPARTATE AMINOTRANSFERASE 14 U/L (15-37); TOTAL PROTEIN, SERUM 7.1 g/dL (6.4-8.2)
[2024-11-02 23:03] LABS: TROPONIN I-HIGH SENSITIVITY 4 ng/L (<76)
[2024-11-02] MEDS ORDERED: ONDANSETRON HCL 4 MG/2 ML VIAL IVP PRN (23:45)
[2024-11-02] MEDS ORDERED: ACETAMINOPHEN 325 MG TABLET PO PRN (23:45)
[2024-11-02] MEDS ORDERED: HYDROCODONE/ACETAMINOPHEN 5-325 MG TABLET PO PRN (23:45)
[2024-11-02] MEDS ORDERED: MAGNESIUM HYDROXIDE SUSPENSION 30 ML UDCUP PO PRN (23:45)
[2024-11-02] MEDS ORDERED: ZOLPIDEM TARTRATE 5 MG TABLET PO PRN (23:45)
[2024-11-02] MEDS ORDERED: BISACODYL 10 MG RECTAL RECTAL SUPPOSITORY PR PRN (23:45)
[2024-11-03] VITALS (7 sets, daily range): BP systolic 124–141; BP diastolic 70–93; PULSE 74–85; RESP 18–19; TEMP 97.2–98.2; O2SAT 96–98
[2024-11-03] MEDS: HEPARIN SODIUM,PORCINE 5,000 UNITS/ML VIAL SQ SCH (00:22)
[2024-11-03] MEDS ORDERED: DOCUSATE SODIUM 250 MG CAPSULE GT PRN (04:00)
[2024-11-03 08:00] LABS: GLUCOMETER DEV NAME(LOC) ERT.7; GLUCOSE,POINT OF CARE 203 MG/DL (70-110)
[2024-11-03] MEDS ORDERED: [UNRECOGNIZED DRUG - OTHER] PO SCH (09:00)
[2024-11-03] MEDS ORDERED: EXENATIDE 5 MCG INJ SCH (09:00)
[2024-11-03 09:02] LABS: APPEARANCE,URINE CLEAR (CLEAR); GLUCOSE, URINE (UA) >=1000 mg/dL (NEGATIVE); LEUKOCYTE ESTERASE ,URINE NEGATIVE (NEGATIVE); NITRATE,URINE NEGATIVE (NEGATIVE); OCCULT BLOOD,URINE NEGATIVE (NEGATIVE); PH,URINE DRUG SCREEN 6.5 (5.0-8.0); SPECIFIC GRAVITIY, URINE 1.015 (1.003-1.030)
[2024-11-03 09:17] LABS: ALCOHOL, URINE DRUG SCREEN NEGATIVE (NEGATIVE); AMPHET/METH SCREEN,URINE NEGATIVE (NEGATIVE); BARBITURATE SCREEN, URINE NEGATIVE (NEGATIVE); CANNABINOID SCREEN,URINE NEGATIVE (NEGATIVE); COCAINE SCREEN,URINE NEGATIVE (NEGATIVE); METHADONE SCREEN, URINE NEGATIVE (NEGATIVE)
[2024-11-03] MEDS: ABACAVIR SULFATE 300 MG TABLET PO SCH (09:21)
[2024-11-03] MEDS: BuPROPion HCL XL 150 MG ER TABLET PO SCH (09:21)
[2024-11-03] MEDS: ASPIRIN 81 MG DR TABLET PO SCH (09:21)
[2024-11-03] MEDS: GABAPENTIN 300 MG CAPSULE PO SCH (09:21)
[2024-11-03] MEDS: MULTIVITAMINS, THERAPEUTIC TABLET PO SCH (09:21)
[2024-11-03] MEDS: DOLUTEGRAVIR SODIUM 50 MG TABLET PO SCH (09:21)
[2024-11-03] MEDS: PANTOPRAZOLE SODIUM 40 MG DR TABLET PO SCH (09:21)
[2024-11-03] MEDS: MORPHINE SULFATE 2 MG/ML SYRINGE IVP PRN (09:24)
[2024-11-03 09:43] LABS: SQUAMOUS EPITHELIAL CELL,UR Rare /LPF (None Seen)
[2024-11-03] MEDS ORDERED: POTASSIUM CHL 10 MEQ/WATER 50 ML IV PRN (14:30)
[2024-11-03] MEDS: INSULIN GLARGINE,HUM.REC.ANLOG 100 UNITS/ML SQ SCH (14:30)
[2024-11-03] MEDS ORDERED: DEXTROSE 50%-WATER 25 GM/50 ML SYRINGE IVP PRN (14:30)
[2024-11-03] MEDS: NITROGLYCERIN 0.4 MG SUBLINGUAL TABLET #25 SL PRN (15:10)
[2024-11-03] MEDS: POTASSIUM CHLORIDE 20 MEQ ER TABLET PO PRN (15:11)
[2024-11-03 15:36] LABS: TROPONIN I-HIGH SENSITIVITY 5 ng/L (<76)
[2024-11-03] MEDS: ALBUTEROL SULFATE 2.5 MG/0.5 ML NEB SOLUTION NEB PRN (17:06)
[2024-11-03] MEDS: IPRATROPIUM BROMIDE 0.5 MG/2.5 ML NEB SOLUTION NEB PRN (17:07)
[2024-11-03] MEDS: PRAVASTATIN SODIUM 40 MG TABLET PO SCH (20:47)
[2024-11-03] MEDS: DIVALPROEX SODIUM 500 MG DR TABLET PO SCH (20:47)
[2024-11-03] MEDS: INSULIN LISPRO 100 UNITS/ML SQ PRN (20:55)
[2024-11-03] MEDS ORDERED: INSULIN GLARGINE,HUM.REC.ANLOG 100 UNITS/ML SQ SCH (21:00)
[2024-11-04 00:17] VITALS: BP 122/86; PULSE 79; RESP 18; TEMP 98.2; O2SAT 99
[2024-11-04 04:17] VITALS: BP 131/86; PULSE 75; RESP 16; TEMP 98.1; O2SAT 98
[2024-11-04 05:40] VITALS: PULSE 80; RESP 22; O2SAT 96
[2024-11-04 05:55] VITALS: PULSE 83; RESP 20; O2SAT 97
[2024-11-04 06:12] LABS: PLATELET COUNT (AUTO) 240 K/uL (150-450); RED BLOOD CELL COUNT(AUTO) 4.80 MIL/uL (4.50-5.90); RED CELL DISTRIBUTION WIDTH 13.3 % (11.5-14.5); WHITE BLOOD COUNT (AUTO) 9.5 K/uL (4.5-11.0)
[2024-11-04 06:22] LABS: CALCIUM, TOTAL 8.8 mg/dL (8.8-10.5); CREATININE 0.90 mg/dL (0.60-1.30); GLOMERULAR FILTR. RATE CALC > 60 mL/min (>60); GLUCOSE,RANDOM 222 mg/dL (70-110); SODIUM SERUM 139 mmol/L (136-145); UREA NITROGEN, BLOOD 12 mg/dL (7-18)
[2024-11-04 07:38] VITALS: BP 132/88; PULSE 74; RESP 18; TEMP 97.9; O2SAT 97
[2024-11-04 07:56] LABS: GLUCOMETER DEV NAME(LOC) 5S.1D; GLUCOSE,POINT OF CARE 206 MG/DL (70-110)
[2024-11-04 11:51] VITALS: BP 129/83; PULSE 75; RESP 18; TEMP 98; O2SAT 98
[2024-11-04] MEDS ORDERED: CARV3 PO (12:51)
[2024-11-06 19:56] LABS: GLUCOMETER DEV NAME(LOC) 5N.1D; GLUCOSE,POINT OF CARE 271 MG/DL (70-110)
[2024-11-06 19:56] LABS: GLUCOMETER DEV NAME(LOC) 5N.1D; GLUCOSE,POINT OF CARE 189 MG/DL (70-110)
== END 2024-11-04 14:25 | disposition home or self-care (01) | DRG 48 ==
LOC: EMS 22:07 → EDH 23:35 → 5S 11-03 08:30
PROVIDERS: ADMIT Hospitalist; ATTEND Hospitalist
DX: G90.89 Other disorders of autonomic nervous system (principal); G92.8 Other toxic encephalopathy; F25.9 Schizoaffective disorder, unspecified; E87.6 Hypokalemia; E11.65 Type 2 diabetes mellitus with hyperglycemia; I10 Essential (primary) hypertension; J44.89 Other specified chronic obstructive pulmonary disease; I49.9 Cardiac arrhythmia, unspecified; G89.29 Other chronic pain; E78.00 Pure hypercholesterolemia, unspecified; F41.9 Anxiety disorder, unspecified; Z96.659 Presence of unspecified artificial knee joint; Z88.0 Allergy status to penicillin; Z79.899 Other long term (current) drug therapy; Z85.118 Personal history of other malignant neoplasm of bronchus and lung; Z87.891 Personal history of nicotine dependence; Z83.3 Family history of diabetes mellitus; Z82.49 Family history of ischemic heart disease and other diseases of the circulatory system; R07.89 Other chest pain
CPT/HCPCS: 71045; 80048; 80076; 80307; 81001; 82009; 82962; 83880; 84132; 84484; 85025; 85610; 85730; 93005; 93306; 94640; 96360; 97116; 97162; 99285; G0378; G0480; J1644; J1815; J2270; J7030; 36415-L1; 36415-TC; J7613

== ENCOUNTER 2024-11-29 09:53 | Emergency (ER) | payer OTHER ==
[~2024-11-29] VITALS: Ht 167.6 cm; Wt 77.3 kg
[~2024-11-29 09:53] MED LIST changes: +CARV3 PO
[2024-11-29 10:10] VITALS: TEMP 98.3
[2024-11-29 10:45] LABS: PLATELET COUNT (AUTO) 224 K/uL (150-450); RED BLOOD CELL COUNT(AUTO) 4.97 MIL/uL (4.50-5.90); RED CELL DISTRIBUTION WIDTH 13.0 % (11.5-14.5); WHITE BLOOD COUNT (AUTO) 7.3 K/uL (4.5-11.0)
[2024-11-29 10:53] LABS: CALCIUM, TOTAL 9.2 mg/dL (8.8-10.5); CREATININE 0.75 mg/dL (0.60-1.30); GLOMERULAR FILTR. RATE CALC > 60 mL/min (>60); GLUCOSE,RANDOM 321 mg/dL (70-110); SODIUM SERUM 135 mmol/L (136-145); UREA NITROGEN, BLOOD 4 mg/dL (7-18)
[2024-11-29 11:01] LABS: CREATINE KINASE, TOTAL ONLY 98 U/L (39-308); TROPONIN I-HIGH SENSITIVITY Less Than 4 ng/L (<76)
[2024-11-29 12:09] LABS: APPEARANCE,URINE CLEAR (CLEAR); GLUCOSE, URINE (UA) >=1000 mg/dL (NEGATIVE); LEUKOCYTE ESTERASE ,URINE NEGATIVE (NEGATIVE); NITRATE,URINE NEGATIVE (NEGATIVE); OCCULT BLOOD,URINE NEGATIVE (NEGATIVE); SPECIFIC GRAVITIY, URINE 1.029 (1.003-1.030)
[2024-11-29 12:34] VITALS: BP 144/80; PULSE 83; RESP 18; O2SAT 98
[2024-11-29 12:48] LABS: TROPONIN I-HIGH SENSITIVITY Less Than 4 ng/L (<76)
[2024-11-29] MEDS: SULFACETAMIDE SODIUM 10% 15 ML OPHTHALMIC SOLUTION OD ONE (14:11)
== END 2024-11-29 14:13 | disposition home or self-care (01) ==
LOC: EMS 09:53
DX: R07.2 Precordial pain (principal); E11.65 Type 2 diabetes mellitus with hyperglycemia; E78.00 Pure hypercholesterolemia, unspecified; F20.9 Schizophrenia, unspecified; F32.A Depression, unspecified; F41.9 Anxiety disorder, unspecified; I11.9 Hypertensive heart disease without heart failure; J44.89 Other specified chronic obstructive pulmonary disease; M19.90 Unspecified osteoarthritis, unspecified site; F17.210 Nicotine dependence, cigarettes, uncomplicated; Z79.624 Long term (current) use of inhibitors of nucleotide synthesis; Z79.82 Long term (current) use of aspirin; Z79.85 Long-term (current) use of injectable non-insulin antidiabetic drugs; Z85.118 Personal history of other malignant neoplasm of bronchus and lung; Z86.718 Personal history of other venous thrombosis and embolism; Z88.0 Allergy status to penicillin; Z96.659 Presence of unspecified artificial knee joint; Z79.899 Other long term (current) drug therapy; Z98.890 Other specified postprocedural states
CPT/HCPCS: 71045; 80048; 81001; 82550; 83880; 84484; 85025; 85610; 85730; 93005; 99285; 36415-L1; 36415-TC